=== PATIENT | male | born 1950 | race Caucasian/White ===

== ENCOUNTER → 2017-10-08 | Outpatient (CLI) | payer MEDICARE ==
[~2017-10-08] MED LIST: ATENOLOL25 M1 PO; BUSPAR 10MG TAB10 MG PO; HYCODAN 1.5 MG-1 TAB PO; KEFLEX500 M1 PO; LEVAQUIN 750 M750 MG PO; LISINOPRIL2.5 MG NG; MUCINEX D 12001 TER PO; NABUMETONE500 MG PO; NORCO 325 MG-51 TAB PO; PRILOSEC20 M1 PO; SIMVASTATIN20 MG PO; SYNTHROID0.112 MG PO
--- NOTE | 2017-10-08 15:39 | RADIOLOGY REPORT PS360 ---
[id number] (RING)-3 VIEWS HISTORY: Follow-up fracture LEFT 4TH FINGER FX ORDERING PHYSICIAN: DARRELL STEWART MD PATIENT AGE: 67 years COMPARISON: 08/23/2017 FINDINGS: Comminuted fracture once again noted involving the tuft of the distal phalanx of the fourth finger. The distal fracture fragment is now slightly posteriorly displaced and posteriorly angulated. This has developed since the previous exam. There is 2 mm dorsal displacement of the distal fracture fragment. No callus formation. Fracture lines are somewhat more prominent when compared to the previous exam. IMPRESSION: Comminuted fracture to the distal phalanx now shows mild posterior displacement and angulation of the distal fracture fragment
== END ==
LOC: RAD 14:41
DX: S62.639B Displaced fracture of distal phalanx of unspecified finger, initial encounter for open fracture (principal)